=== PATIENT | female | born 1990 | race American Indian/Alaskan Native ===

== ENCOUNTER 2017-06-13 13:40 | Outpatient (CLI) | payer SELFPAY ==
[2017-06-13 15:00] LABS: Hematocrit 34.6 % (30.3-42.9); Hemoglobin 10.6 gm/dl (10.1-14.3); Mean Corpuscular HGB Conc 31 % (30-34); Mean Corpuscular Volume 82 fl (79-97); Platelet Count 290 K/mm3 (140-440); Red Blood Count 4.23 M/mm3 (3.65-5.03)
[2017-06-13 15:08] LABS: Bacteria,Urine 1+ /HPF (Negative); Bilirubin,Urine NEG (Negative); Blood,Urine NEG (Negative); Color,Urine Yellow (Yellow); Mucus,Urine 1+ /HPF; Protein,Urine <15 mg/dL mg/dL (Negative); Urobilinogen,Urine < 2.0 mg/dL (<2.0)
[2017-06-13 15:11] LABS: Mean Corpuscular Hemoglobin 25 pg (28-32)
[2017-06-13 15:19] VITALS: BP 118/61
[2017-06-13 15:19] LABS: Alanine Aminotransferase 14 units/L (7-56)
== END 2017-06-13 15:40 | disposition home or self-care (01) ==
LOC: TRG 13:40
PROVIDERS: ATTEND Obstetrics & Gynecology
DX: O47.03 False labor before 37 completed weeks of gestation, third trimester (principal); Z3A.29 29 weeks gestation of pregnancy
CPT/HCPCS: 36415; 59025; 81001; 82565; 83615; 84450; 84460; 84550; 85027

== ENCOUNTER 2017-07-17 16:14 | Outpatient (CLI) | payer OTHER ==
[2017-07-17 16:29] VITALS: BP 117/60
--- NOTE | 2017-07-17 18:40 | Ultrasound Report ---
FINAL REPORT EXAM: US OB LIMITED HISTORY: NRNST TECHNIQUE: Real-time sonography was performed of the gravid uterus for biophysical profile and images are submitted for interpretation. Detailed anatomic survey was not performed. PRIORS: None. FINDINGS: There is a single fetus in the uterus in a cephalic presentation. The placenta is posterior and the os is clear. The amniotic fluid index is normal at 12.6 cm. The heart is beating at a rate of 139 beats per minute. Biophysical profile: Breathin Movement: 2 Tone: 2 Fluid volume: 2 IMPRESSION: Normal biophysical profile, 10/03
--- NOTE | 2017-07-17 18:42 | Ultrasound Report ---
FINAL REPORT EXAM: US OB BPP WO NON-STRESS HISTORY: NRNST TECHNIQUE: Real-time sonography was performed of the gravid uterus for biophysical profile and images are submitted for interpretation. Detailed anatomic survey was not performed. PRIORS: None. FINDINGS: There is a single fetus in the uterus in a cephalic presentation. The placenta is posterior and the os is clear. The amniotic fluid index is normal at 12.6 cm. The heart is beating at a rate of 139 beats per minute. Biophysical profile: Breathin Movement: 2 Tone: 2 Fluid volume: 2 IMPRESSION: Normal biophysical profile, 10/03
== END 2017-07-17 18:48 | disposition home or self-care (01) ==
LOC: TRG 16:14
PROVIDERS: ATTEND Obstetrics & Gynecology
DX: Z34.93 Encounter for supervision of normal pregnancy, unspecified, third trimester (principal); Z3A.34 34 weeks gestation of pregnancy
CPT/HCPCS: 59025; 76815; 76819

== ENCOUNTER 2017-08-22 20:41 | Inpatient (IN) | payer SELFPAY ==
[2017-08-22] MEDS ORDERED: POLYCILLIN/NS 2 GM/100 ML 2 GM/100 ML BAG IV ONE (22:11)
[2017-08-22] MEDS ORDERED: CERVIDIL VG ONE (22:11)
[2017-08-22] MEDS: LACTATED RINGERS 1,000 ML IV SCH (22:35)
[2017-08-22] MEDS ORDERED: PITOCin/NS 20 UNIT/1000ML DRIP 20 UNITS/1,000 ML BAG IV SCH (23:00)
[2017-08-22 23:07] LABS: Hematocrit 34.4 % (30.3-42.9); Hemoglobin 10.5 gm/dl (10.1-14.3); Mean Corpuscular HGB Conc 31 % (30-34); Mean Corpuscular Volume 74 fl (79-97); Red Blood Count 4.66 M/mm3 (3.65-5.03)
[2017-08-22 23:11] LABS: Mean Corpuscular Hemoglobin 23 pg (28-32); Platelet Count 267 K/mm3 (140-440)
[2017-08-23] MEDS: AMPICILLIN/NS 1 GM/50 ML 1 GM/50 ML BAG IV SCH ×6 (02:15→23:17)
[2017-08-23] MEDS: LACTATED RINGERS 1,000 ML IV SCH ×3 (02:18→20:07)
--- NOTE | 2017-08-23 13:13 | History and Physical Report ---
History of Present Illness Date of examination: 08/23/17 Date of admission: 08/22/17 20:41 Chief complaint: Presents for IOL History of present illness: 27 yo AA fe , LMP 11/19/2016, MARGARET 08/26/2017 (LMP) 39 weeks 4 days presents for induction of labor. O+, Rubella Immune, VDRL Negative, HBAg negative, HIV negative, GBS Positive. Pt initiated early care at [facility]. Her course has been complicated by positive Chlamydia 02/20/2017 (Negative STEFANIE 2017), PIH (Labetalol 200mg PO BID), and GDM (Glyburide 2.5mg PO QD). Past History Past Medical History: diabetes (GDM; Gluburide 2.5mg PO QD) Past Surgical History: no surgical history [employer] History: chlamydia (Positive 02/20/17, Negative STEFANIE 06/11/17). denies: abnormal PAP smear, gonorrhea, hepatitis B, hepatitis C, herpes, HIV, syphilis, trichomonas Family/Genetic History: diabetes, heart disease Social history: no significant social history, single, lives with family, full code. denies: smoking, alcohol abuse, prescription drug abuse, IV drug use - Obstetrical History Expected Date of Delivery: 08/26/17 Actual Gestation: 39 Week(s) 4 Day(s) : 1 Para: 0 Hx # Term Pregnancies: 0 Spontaneous Abortions: 0 Induced : 0 Number of Living Children: 0 Medications and Allergies Allergies Allergy/AdvReac Type Severity Reaction Status Date / Time No Known Allergies Allergy Verified 08/22/17 22:17 Home Medications Medication Instructions Recorded Confirmed Last Taken Type No Known Home Medications [No 08/22/17 08/22/17 Unknown History Reported Home Medications] Active Meds: Active Medications Lactated Ringer's (Lactated Ringers) 1,000 mls @ 125 mls/hr IV DIRECT SHERRY Last Admin: 08/23/17 06:39 Dose: 125 mls/hr Oxytocin/Sodium Chloride (Pitocin/Ns 20 Unit/1000ml Drip) 20 units in 1,000 mls @ 0 mls/hr IV DIRECT SHERRY Ampicillin Sodium (Ampicillin/Ns 1 Gm/50 Ml) 1 gm in 50 mls @ 100 mls/hr IV Q4HR SHERRY; Protocol Last Admin: 08/23/17 10:32 Dose: 100 mls/hr Review of Systems Eyes: normal appearance Cardiovascular: no chest pain, no palpitations, no shortness of breath Respiratory: no shortness of breath Breasts: normal Gastrointestinal: no abdominal pain, no nausea, no vomiting, no diarrhea Genitourinary: normal appearance, no leakage of fluid, no pelvic pain, no genital sores, no contractions Rectal Exam: no hemorrhoids Integumentary: no rash, no sores, no lesions - Vital Signs Vital signs: Vital Signs Pulse BP 82 130/69 08/22/17 21:30 08/22/17 21:30 Temp Pulse Resp BP Pulse Ox 96.8 F L 74 18 122/58 08/23/17 11:21 08/23/17 11:20 08/23/17 11:21 08/23/17 11:20 - Physical Exam Breasts: Positive: normal Cardiovascular: Regular rate, Normal S1, Normal S2 Lungs: Positive: Clear to auscultation, Normal air movement Abdomen: Positive: normal appearance, soft, normal bowel sounds, other (Gravid) Genitourinary (Female): Positive: normal external genitalia, normal perenium Vulva: both: normal Vagina: Positive: normal moisture Uterus: Positive: enlarged (S=D) Anus/Rectum: Positive: normal perianal skin Extremities: Positive: normal Deep Tendon Reflex Grade: Normal +2 - Obstetrical FHR: auscultation normal, category 1 Uterine Contraction Monitor Mode: External Cervical Dilatation: 1 Cervical Effacement Percentage: 40 station: -3 Uterine Contraction Pattern: Irregular Uterine Contraction Intensity: Mild Results Result Diagrams: 08/22/17 21:30 Abnormal lab results 08/22/17 08/23/17 Range/Units 21:30 04:00 WBC 15.4 H (4.5-11.0) K/mm3 MCV 74 L (79-97) fl MCH 23 L (28-32) pg RDW 19.0 H (13.2-15.2) % POC Glucose 114 H (70-105) All other labs normal. Assessment and Plan A: , Term IUP @ 39w4d PIH (Labetalol 200mg PO BID) GDM (Glyburide 2.5mg PO QD) GBS Positive Category 1 tracing P: Cervidil IOL GBS prophylaxis PIH labs BS Q4 hrs Anticiapte
[2017-08-23] MEDS ORDERED: XYLOCAINE 2% INFILTRATI ONE (13:22)
[2017-08-23] MEDS ORDERED: MINERAL OIL PO PRN (13:22)
[2017-08-23] MEDS ORDERED: BRETHINE IVP PRN (13:22)
[2017-08-23] MEDS ORDERED: BRETHINE SUB-Q PRN (13:22)
[2017-08-23] MEDS ORDERED: ePHEDrine SULFATE IV PRN ×2 (13:22→23:44)
[2017-08-23] MEDS ORDERED: PHENERGAN PO PRN (13:22)
[2017-08-23] MEDS ORDERED: NARCAN 0.4 MG/1 ML IV PRN (13:22)
[2017-08-23] MEDS ORDERED: CERVIDIL VG ONE (14:00)
[2017-08-23] MEDS ORDERED: PITOCin/NS 20 UNIT/1000ML DRIP 20 UNITS/1,000 ML BAG IV SCH (14:00)
[2017-08-23 16:39] LABS: Alanine Aminotransferase 7 units/L (7-56); BUN/Creatinine Ratio 8; Blood Urea Nitrogen 3 mg/dL (7-17); Calcium 8.8 mg/dL (8.4-10.2); Hemolysis Index 6
[2017-08-23] MEDS ORDERED: STADOL IV PRN (21:14)
[2017-08-23] MEDS ORDERED: NARCAN 2 MG/2 ML IV PRN (23:44)
[2017-08-23] MEDS ORDERED: fentaNYL-BUPIV 2 MCG/ML-0.125% 200 MCG/100 ML BAG EPIDURAL SCH (23:45)
--- NOTE | 2017-08-24 00:08 | Anesthesia Consultation ---
Anesthesia Consult and Med Hx Date of service: 08/24/17 - Airway Anesthetic Teeth Evaluation: Good ROM Head & Neck: Adequate Mental/Hyoid Distance: Adequate Mallampati Class: Class II Intubation Access Assessment: Good - Pulmonary Exam CTA: Yes - Cardiac Exam Cardiac Exam: No Murmur - Pre-Operative Health Status Proposed Anesthetic Plan: Epidural - Pulmonary Hx Asthma: No - Cardiovascular System Hx Hypertension: No - Central Nervous System Hx Seizures: No Hx Psychiatric Problems: No - Endocrine Hx Renal Disease: No Hx Hypothyroidism: No Hx Hyperthyroidism: No - Hematic Hx Anemia: No Hx Sickle Cell Disease: No - Other Systems Hx Alcohol Use: No
[2017-08-24] MEDS ORDERED: PITOCin/NS 30 UNIT/500ML 30,000 MILLIUNITS/500 ML BAG IV ONE (01:25)
--- NOTE | 2017-08-24 01:29 | Progress Note ---
Assessment and Plan - Patient Problems (1) 39 weeks gestation of Onset Date: 08/24/17 Current Visit: Yes Status: Acute Plan to address problem: A:IUP @ 39 5/7weeks PIH (Labetalol 200mg PO BID) GDM (Glyburide 2.5mg PO QD) GBS Positive Category 1 tracing P: Continue with pitocin induction of labor Expectant vaginal delivery (2) PIH ( induced hypertension) Onset Date: 08/24/17 Current Visit: Yes Status: Acute Qualifiers: Trimester: third trimester Qualified Code(s): O13.3 - Gestational [ -induced] hypertension without significant proteinuria, third trimester (3) GDM (gestational diabetes mellitus) Onset Date: 08/24/17 Current Visit: Yes Status: Acute Subjective - Subjective Date of service: 08/24/17 Principal diagnosis: IUP @ 39 5/7 weeks; PIH; GDM Interval history: Pt is currently feeling well, after cervidil removed and evan q 3-5 mins with epidural in place. Patient reports: loss of fluid, movement normal, contractions, no new complaints, no vaginal bleeding Objective - Vital Signs Vital Signs: Vital Signs - 12hr 08/23/17 08/23/17 08/23/17 16:00 16:01 19:42 Temperature 98.6 F 98.3 F Pulse Rate 99 H 99 H 96 H Respiratory 20 18 Rate Blood Pressure 135/68 133/64 Blood Pressure 135/68 133/64 [Right] O2 Sat by Pulse Oximetry 08/23/17 08/23/17 08/23/17 19:55 20:00 20:05 Temperature Pulse Rate 96 H 100 H 92 H Respiratory Rate Blood Pressure Blood Pressure [Right] O2 Sat by Pulse 100 100 100 Oximetry 08/23/17 08/23/17 08/23/17 20:10 20:15 20:18 Temperature Pulse Rate 92 H 95 H 101 H Respiratory Rate Blood Pressure Blood Pressure [Right] O2 Sat by Pulse 100 100 66 L Oximetry 08/23/17 08/23/17 08/23/17 20:20 20:25 20:30 Temperature Pulse Rate 98 H 96 H 98 H Respiratory Rate Blood Pressure Blood Pressure [Right] O2 Sat by Pulse 99 100 99 Oximetry 08/23/17 08/23/17 08/23/17 20:35 20:46 20:49 Temperature Pulse Rate 100 H 95 H 106 H Respiratory Rate Blood Pressure Blood Pressure [Right] O2 Sat by Pulse 99 99 94 Oximetry 08/23/17 08/23/17 08/23/17 20:50 20:55 21:01 Temperature Pulse Rate 93 H 102 H 102 H Respiratory Rate Blood Pressure Blood Pressure [Right] O2 Sat by Pulse 99 100 99 Oximetry 08/23/17 08/23/17 08/23/17 21:06 21:10 21:15 Temperature Pulse Rate 114 H 109 H 110 H Respiratory Rate Blood Pressure Blood Pressure [Right] O2 Sat by Pulse 100 100 99 Oximetry 08/23/17 08/23/17 08/23/17 21:17 21:19 21:21 Temperature Pulse Rate 112 H 104 H Respiratory 22 Rate Blood Pressure Blood Pressure [Right] O2 Sat by Pulse 86 100 Oximetry 08/23/17 08/23/17 08/23/17 21:25 21:26 21:27 Temperature Pulse Rate 107 H 106 H Respiratory Rate Blood Pressure 129/64 Blood Pressure [Right] O2 Sat by Pulse 75 L 91 Oximetry 08/23/17 08/23/17 08/23/17 21:30 21:35 21:41 Temperature Pulse Rate 105 H 102 H 101 H Respiratory Rate Blood Pressure Blood Pressure [Right] O2 Sat by Pulse 100 100 100 Oximetry 08/23/17 08/23/17 08/23/17 21:45 21:51 21:56 Temperature Pulse Rate 101 H 104 H 103 H Respiratory Rate Blood Pressure Blood Pressure [Right] O2 Sat by Pulse 100 99 100 Oximetry 08/23/17 08/23/17 08/23/17 21:59 22:00 22:06 Temperature Pulse Rate 99 H 96 H 98 H Respiratory Rate Blood Pressure Blood Pressure [Right] O2 Sat by Pulse 84 100 100 Oximetry 08/23/17 08/23/17 08/23/17 22:11 22:16 22:21 Temperature Pulse Rate 99 H 100 H 99 H Respiratory Rate Blood Pressure Blood Pressure [Right] O2 Sat by Pulse 100 99 100 Oximetry 08/23/17 08/23/17 08/23/17 22:24 22:26 22:30 Temperature Pulse Rate 98 H 100 H 93 H Respiratory 18 Rate Blood Pressure 152/84 Blood Pressure 106/58 [Right] O2 Sat by Pulse 98 Oximetry 08/23/17 08/23/17 08/23/17 22:31 22:36 22:38 Temperature Pulse Rate 100 H 96 H 98 H Respiratory 18 Rate Blood Pressure Blood Pressure 152/84 [Right] O2 Sat by Pulse 100 98 98 Oximetry 08/23/17 08/23/17 08/23/17 22:41 22:46 22:51 Temperature Pulse Rate 94 H 113 H 114 H Respiratory Rate Blood Pressure Blood Pressure [Right] O2 Sat by Pulse 100 100 100 Oximetry 08/23/17 08/23/17 08/23/17 22:56 23:02 23:07 Temperature Pulse Rate 103 H 96 H 100 H Respiratory Rate Blood Pressure 168/89 Blood Pressure [Right] O2 Sat by Pulse 100 100 96 Oximetry 08/23/17 08/23/17 08/23/17 23:12 23:17 23:22 Temperature Pulse Rate 98 H 103 H 99 H Respiratory Rate Blood Pressure Blood Pressure [Right] O2 Sat by Pulse 100 100 100 Oximetry 08/23/17 08/23/17 08/23/17 23:27 23:33 23:34 Temperature Pulse Rate 108 H 125 H 108 H Respiratory Rate Blood Pressure Blood Pressure [Right] O2 Sat by Pulse 96 90 100 Oximetry 08/23/17 08/23/17 08/23/17 23:38 23:39 23:43 Temperature Pulse Rate 106 H 99 H 111 H Respiratory Rate Blood Pressure Blood Pressure [Right] O2 Sat by Pulse 81 L 93 100 Oximetry 08/23/17 08/23/17 08/23/17 23:49 23:54 23:59 Temperature Pulse Rate 83 103 H 106 H Respiratory Rate Blood Pressure 161/99 Blood Pressure [Right] O2 Sat by Pulse 99 100 100 Oximetry 08/24/17 08/24/17 08/24/17 00:02 00:05 00:08 Temperature Pulse Rate 98 H 93 H 83 Respiratory Rate Blood Pressure 149/95 146/67 112/58 Blood Pressure [Right] O2 Sat by Pulse 100 91 Oximetry 08/24/17 08/24/17 08/24/17 00:10 00:11 00:13 Temperature Pulse Rate 100 H 97 H 97 H Respiratory Rate Blood Pressure 120/71 119/65 Blood Pressure [Right] O2 Sat by Pulse 99 Oximetry 08/24/17 08/24/17 08/24/17 00:15 00:17 00:20 Temperature Pulse Rate 99 H 100 H 93 H Respiratory Rate Blood Pressure 133/61 124/63 Blood Pressure [Right] O2 Sat by Pulse 100 Oximetry 08/24/17 08/24/17 08/24/17 00:21 00:26 00:31 Temperature Pulse Rate 89 90 84 Respiratory Rate Blood Pressure Blood Pressure [Right] O2 Sat by Pulse 100 100 100 Oximetry 08/24/17 08/24/17 08/24/17 00:35 00:36 00:38 Temperature Pulse Rate 94 H 91 H 108 H Respiratory Rate Blood Pressure 125/58 Blood Pressure [Right] O2 Sat by Pulse 100 92 Oximetry 08/24/17 08/24/17 08/24/17 00:41 00:46 00:50 Temperature Pulse Rate 93 H 87 82 Respiratory Rate Blood Pressure 129/61 Blood Pressure [Right] O2 Sat by Pulse 98 100 Oximetry 08/24/17 08/24/17 08/24/17 00:51 00:56 00:59 Temperature Pulse Rate 91 H 94 H 97 H Respiratory Rate Blood Pressure Blood Pressure [Right] O2 Sat by Pulse 100 100 92 Oximetry 08/24/17 08/24/17 08/24/17 01:01 01:05 01:06 Temperature Pulse Rate 95 H 87 87 Respiratory Rate Blood Pressure 143/74 Blood Pressure [Right] O2 Sat by Pulse 100 100 Oximetry 08/24/17 08/24/17 08/24/17 01:11 01:16 01:20 Temperature Pulse Rate 80 86 84 Respiratory Rate Blood Pressure 160/75 Blood Pressure [Right] O2 Sat by Pulse 100 100 Oximetry 08/24/17 08/24/17 08/24/17 01:21 01:26 01:31 Temperature Pulse Rate 97 H 109 H 95 H Respiratory Rate Blood Pressure Blood Pressure [Right] O2 Sat by Pulse 100 100 68 L Oximetry - Exam Abdomen: Present: normal appearance, soft FHR: category 1 Uterine Contraction Monitor Mode: External Cervical Dilatation: 5 Cervical Effacement Percentage: 100 station: -1 Uterine Contraction Pattern: Regular Uterine Tone Measurement Phase: Contraction Uterine Contraction Intensity: Moderate - Labs Labs: Abnormal Labs 08/22/17 08/23/17 08/23/17 21:30 04:00 15:17 WBC 15.4 H MCV 74 L MCH 23 L RDW 19.0 H Carbon Dioxide 21 L BUN 3 L Creatinine 0.4 L Glucose 106 H POC Glucose 114 H Alkaline Phosphatase 149 H Total Protein 6.2 L Albumin 3.0 L 08/23/17 21:08 WBC MCV MCH RDW Carbon Dioxide BUN Creatinine Glucose POC Glucose 62 L Alkaline Phosphatase Total Protein Albumin Laboratory Results - last 24 hr 08/22/17 08/23/17 08/23/17 21:30 04:00 11:16 Sodium Potassium Chloride Carbon Dioxide Anion Gap BUN Creatinine Estimated GFR BUN/Creatinine Ratio Glucose POC Glucose 114 H 76 Calcium Total Bilirubin AST ALT Alkaline Phosphatase Total Protein Albumin Albumin/Globulin Ratio RPR Nonreactive 08/23/17 08/23/17 15:17 21:08 Sodium 137 Potassium 3.7 Chloride 101.7 Carbon Dioxide 21 L Anion Gap 18 BUN 3 L Creatinine 0.4 L Estimated GFR > 60 BUN/Creatinine Ratio 8 Glucose 106 H POC Glucose 62 L Calcium 8.8 Total Bilirubin 0.40 AST 14 ALT 7 Alkaline Phosphatase 149 H Total Protein 6.2 L Albumin 3.0 L Albumin/Globulin Ratio 0.9 RPR
[2017-08-24] MEDS: LACTATED RINGERS 1,000 ML IV SCH (01:31)
[2017-08-24] MEDS ORDERED: PITOCin/NS 30 UNIT/500ML 30 UNITS/500 ML BAG IV SCH (02:00)
[2017-08-24] MEDS: AMPICILLIN/NS 1 GM/50 ML 1 GM/50 ML BAG IV SCH (04:16)
[2017-08-24] MEDS ORDERED: XYLOCAINE 2% INFILTRATI ONE (07:14)
[2017-08-24] MEDS ORDERED: METHERGINE IM ONE ×2 (07:59→08:07)
--- NOTE | 2017-08-24 08:13 | Procedure Note ---
OB Delivery Note - Delivery Date of Delivery: 08/24/17 Surgeon: CHARLES GOLDSTEIN Estimated blood loss: 200cc - Vaginal Delivery presentation: vertex Delivery position: OA Intrapartum events: none, PROM->1hr before delivery Delivery induction: cervidil Delivery augmentation: rupture of membranes, pitocin Delivery monitor: external FHT, external uterine Route of delivery: Delivery placenta: spontaneous Delivery cord: 3 umbilical vessels Episiotomy: none Delivery laceration: 1st degree Anesthesia: epidural - Infant A at 1 minute: 8 at 5 minutes: 9 Infant Gender: Female (3182gms)
[2017-08-24] MEDS ORDERED: PHENERGAN PR PRN (09:00)
[2017-08-24] MEDS ORDERED: TUCKS PAD TP PRN (09:00)
[2017-08-24] MEDS ORDERED: BENADRYL PO PRN (09:00)
[2017-08-24] MEDS ORDERED: ZOFRAN IV PRN (09:00)
[2017-08-24] MEDS ORDERED: TYLENOL PO PRN (09:00)
[2017-08-24] MEDS ORDERED: PHENERGAN PO PRN (09:00)
[2017-08-24] MEDS ORDERED: SODIUM CHLORIDE FLUSH SYRINGE 10 ML IV PRN (09:00)
[2017-08-24] MEDS ORDERED: PITOCin/NS 20 UNIT/1000ML DRIP 20 UNITS/1,000 ML BAG IV SCH (09:00)
[2017-08-24] MEDS ORDERED: LANSINOH TP PRN (09:00)
[2017-08-24] MEDS: MOTRIN PO SCH ×2 (09:11→18:24)
[2017-08-24] MEDS: NORCO 5/325 PO PRN (09:12)
[2017-08-24] MEDS ORDERED: DULCOLAX PR PRN (10:00)
[2017-08-24] MEDS ORDERED: SENOKOT S PO SCH (10:00)
[2017-08-24] MEDS: COLACE PO SCH (11:30)
[2017-08-24] MEDS: FEOSOL PO SCH (11:30)
[2017-08-24] MEDS: PRENATAL VITAMIN PO SCH (11:30)
[2017-08-24 21:20] LABS: Hematocrit 32.9 % (30.3-42.9)
[2017-08-24] MEDS ORDERED: MILK OF MAGNESIA PO PRN (22:00)
[2017-08-25] MEDS: MOTRIN PO SCH ×3 (02:43→18:02)
[2017-08-25] MEDS: FEOSOL PO SCH ×2 (02:44→10:17)
[2017-08-25] MEDS: COLACE PO SCH ×2 (02:44→10:17)
[2017-08-25] MEDS ORDERED: BOOSTRIX IM ONE (06:00)
[2017-08-25] MEDS: PRENATAL VITAMIN PO SCH (10:17)
[2017-08-25] MEDS ORDERED: M-M-R II VACCINE SUB-Q ONE (11:00)
--- NOTE | 2017-08-25 13:36 | Progress Note ---
Assessment and Plan A: day 1. . History of PIH and GDM. P: Anticipate discharge home tomorrow. Subjective - Subjective Date of service: 08/25/17 Principal diagnosis: IUP @ 39 5/7 weeks; PIH; GDM Interval history: day 1. Doing well. Patient is . She is ambulating well. She is voiding without difficulty. She is tolerating a regular diet without nausea or vomiting. Patient denies headache, chest pain, shortness of breath, visual disturbance, abdominal pain, leg pain, heavy vaginal bleeding, or symptoms of depression. Patient reports small amount of lochia. She states she plans to use Depo Provera for contraception at 6 weeks . Patient reports: appetite normal, voiding normally, pain well controlled, flatus , ambulating normally : doing well Objective - Vital Signs Latest vital signs: Vital Signs Temp Pulse Resp BP BP Pulse Ox 08/25/17 07:10 83 20 117/67 99 08/25/17 00:00 98.4 F 86 20 136/73 08/24/17 20:35 98.2 F 94 H 20 120/66 08/24/17 17:06 98.5 F 83 20 121/64 98 Intake and Output 08/24/17 08/25/17 08/25/17 23:59 07:59 15:59 Intake Total 120 240 400 Balance 120 240 400 Intake: Oral 120 240 400 Other: Total, Intake Amount 120 240 400 Voiding Method Toilet # Voids Void 1 1 - Exam Breasts: Present: normal Cardiovascular: Present: Regular rate, Normal S1, Normal S2, No murmurs Lungs: Present: Clear to auscultation Abdomen: Present: normal appearance, soft, normal bowel sounds. Absent: distention, tenderness, guarding, rigidity Uterus: Present: normal, firm, fundal height below umbilicus. Absent: bogginess , tenderness Extremities: Present: normal. Absent: tenderness, edema - Labs Labs: Abnormal lab results 08/24/17 08/24/17 08/25/17 Range/Units 17:14 20:22 08:28 Hgb 10.0 L (10.1-14.3) gm/dl POC Glucose 130 H 67 L (70-105)
[2017-08-25] MEDS: NORCO 5/325 PO PRN (20:49)
[2017-08-26] MEDS: COLACE PO SCH (00:57)
[2017-08-26] MEDS: MOTRIN PO SCH ×2 (00:57→06:42)
[2017-08-26] MEDS: FEOSOL PO SCH (00:57)
--- NOTE | 2017-08-26 10:17 | Progress Note ---
Assessment and Plan A: day 2. Anemia. . P: Discharge patient home today when baby is able to go. The following Rx were called to [facility] pharmacy (Motrin 800 mg, #30, 1 po every 8 hours prn, 0 RF; Ferrous Sulfate 325 mg, #60, 1 po BID, 2 RF; Vitamin, #30, 1 po daily, 2 RF. Discussed with patient in detail discharge instructions and warning signs and use of medications. Advised pt. to avoid IC, heavy housework, and lifting. Pt. to continue her BP medications she has at home. Advised pt. to follow up with [facility] in 1 week. Pt. voiced understanding of all instructions. Subjective - Subjective Date of service: 08/26/17 Principal diagnosis: day 2. Interval history: day 2. Doing well. Patient desires discharge today. Patient is . She is ambulating well. She is voiding without difficulty. She is tolerating a regular diet without nausea or vomiting. She is passing gas and has had BM. Patient denies headache, chest pain, shortness of breath, visual disturbance, abdominal pain, leg pain, heavy vaginal bleeding, or symptoms of depression. Patient reports small amount of lochia. She states she plans to use Depo Provera for contraception at 6 weeks . Patient reports: appetite normal, voiding normally, pain well controlled, flatus , bowel movement, ambulating normally : doing well Objective - Vital Signs Latest vital signs: Vital Signs Temp Pulse Resp BP BP Pulse Ox 08/26/17 00:54 97.7 F 83 18 123/45 99 08/25/17 15:20 98.1 F 81 20 132/70 Intake and Output 08/25/17 08/26/17 08/26/17 23:59 07:59 15:59 Intake Total 300 350 Balance 300 350 Intake: Oral 300 350 Other: Total, Intake Amount 300 350 Voiding Method Toilet # Voids Void 3 # Bowel Movements 0 - Exam Cardiovascular: Present: Regular rate, Normal S1, Normal S2, No murmurs Lungs: Present: Clear to auscultation Abdomen: Present: normal appearance, soft. Absent: distention, tenderness, guarding, rigidity Uterus: Present: normal, firm. Absent: bogginess, tenderness Extremities: Present: normal. Absent: tenderness, edema - Labs Labs: Abnormal lab results 08/26/17 Range/Units 00:17 POC Glucose 113 H (70-105)
--- NOTE | 2017-08-26 10:49 | Discharge Summary ---
Providers - Providers Date of Admission: 08/22/17 20:41 Date of discharge: 08/26/17 Attending physician: FRANKI AGUIRRE MD None Primary care physician: FRANKI AGUIRRE MD Hospitalization Reason for admission: induction of labor Delivery: Episiotomy: none Laceration: 1st degree Other procedures: none complications: none Discharge diagnosis: IUP at term delivered [place] baby: female Pertinent studies: Labs Hospital course: Normal course Condition at discharge: Good Disposition: DC-01 TO HOME OR SELFCARE - Discharge Diagnoses (1) Term delivered Status: Acute Plan - Provider Discharge Summary Activity: routine, no sex for 6 weeks, no heavy lifting 4 weeks, no strenuous exercise Diet: routine Instructions: routine Additional instructions: Call your doctor immediately for: * Fever > 100.5 * Heavy vaginal bleeding ( >1 pad per hour) * Severe persistent headache * Shortness of breath * Reddened, hot, painful area to leg or breast Continue your home BP medication. Avoid sweets and processed foods. Take PNV and iron supplements and Motrin every 8 hours as needed for pain (Rx were called to [facility]). Follow up with [facility] in 1 week. - Follow up plan Follow up: FRANKI AGUIRRE MD [Primary Care Provider] - 7 Days
[2017-08-26 12:31] VITALS: BP 119/63
== END 2017-08-26 16:00 | disposition home or self-care (01) | DRG 775 ==
LOC: LD 20:41 → OB 08-24 09:33
PROVIDERS: ADMIT Obstetrics & Gynecology; ATTEND Obstetrics & Gynecology
PROC: 10E0XZZ Delivery of Products of Conception, External Approach (ICD-10-PCS; principal; 2017-08-24)
PROC: 3E033VJ Introduction of Other Hormone into Peripheral Vein, Percutaneous Approach (ICD-10-PCS; 2017-08-24)
PROC: 0HQ9XZZ Repair Perineum Skin, External Approach (ICD-10-PCS; 2017-08-24)
PROC: 10E0XZZ Delivery of Products of Conception, External Approach (ICD-10-PCS; 2017-08-24)
PROC: 3E0R3BZ Introduction of Anesthetic Agent into Spinal Canal, Percutaneous Approach (ICD-10-PCS; 2017-08-24)
PROC: 00HU33Z Insertion of Infusion Device into Spinal Canal, Percutaneous Approach (ICD-10-PCS; 2017-08-24)
PROC: 3E0234Z Introduction of Serum, Toxoid and Vaccine into Muscle, Percutaneous Approach (ICD-10-PCS; 2017-08-25)
DX: O24.429 Gestational diabetes mellitus in childbirth, unspecified control (principal); O99.824 Streptococcus B carrier state complicating childbirth; O13.4 Gestational [pregnancy-induced] hypertension without significant proteinuria, complicating childbirth; O70.0 First degree perineal laceration during delivery; O90.81 Anemia of the puerperium; D64.9 Anemia, unspecified; Z3A.39 39 weeks gestation of pregnancy; Z37.0 Single live birth; Z23 Encounter for immunization; Z83.3 Family history of diabetes mellitus; Z82.49 Family history of ischemic heart disease and other diseases of the circulatory system
CPT/HCPCS: 36415; 59200; 80053; 82962; 85014; 85018; 85027; 86592; 86850; 86900; 86901; 99211; A6250; G0463; J0290; J0595; J2210; J2590; J7120